=== PATIENT | female | born 1985 | race African-American/Black ===

== ENCOUNTER 2020-09-12 08:05 | Outpatient (CLI) | payer OTHER, SELFPAY ==
--- NOTE | 2020-09-12 14:21 | WPDSIXMINUTE ---
Six Minute Walk Procedure Procedure Performed Pulmonary Stress Test (6 min walk) Six Minute Walk This is a 6 minutes walk test. The test was performed and interpreted in accordance with the 2014 ERS/ATS task force guidelines. Findings: The patient's resting room air oxygen saturation measured by pulse oximetry was 99% and her heart rate was 103 bpm. Patient ambulated for 381 meters and oxygen saturation remained 97 to 99%. Heart rate at the end of the study was 118 bpm. The patient did not qualify for supplemental oxygen at rest or with ambulation. There are no prior studies for comparison.
--- NOTE | 2020-09-12 14:22 | P.PCNPFT_ITS ---
PFT Procedure Performed PFT Procedure Performed Spirometry with Pre/Post Bronchodilator Plethysmography (Lung Vol) Diffusing Cap (DLCO) Flow Vol Loop PFT Interpretation This is a pulmonary function test with pre and post-bronchodilator spirometry, plethysmography, diffusing capacity and measurement of maximal inspiratory and expiratory pressures. The test was performed and results interpreted in accordance with the 2019 and 2005 ATS/ERS Task Force guidelines respectively using the Global Lung Function Initiative-2012 reference equations. Patient demonstrated good effort and cooperation although she had a very difficult time with all testing trials due to her inability to take in a deep breath or exhale fully. Patient stated this breathing pattern started in the past couple months. Patient stated she did feel some relief post albuterol but minimal. Reproducibility criteria were met. The quality of the pre bronchodilator spirometry maneuver was Grade A and post bronchodilator spirometry maneuver was Grade B. Findings: Spirometry: The contour of the pre bronchodilator expiratory flow tracing is blunted with all attempts. The contour of the post bronchodilator expiratory flow tracing is normal. The contour the inspiratory flow tracings are normal. The pre bronchodilator FVC is 2.56 L, 71% predicted. The pre bronchodilator FEV1 is 1.61 L, 54% predicted. The FEV1: FVC ratio 63%. The post bronchodilator FVC is 2.83 L, representing an 11% increase. The post bronchodilator FEV1 is 2.26 L, representing a 40% increase. Plethysmography: The total lung capacity is 5.66 L, 117% predicted. The functional residual capacity is 4.30 L, 153% predicted. The residual volume is 3.10 L, 210% predicted. Diffusing capacity: The absolute diffusion capacity is 18.5, 72% predicted. The diffusing capacity corrected for alveolar volume is 5.78, 122% predicted. Pressures: Maximal inspiratory pressure was 31 cm water, 36% predicted. Maximal expiratory pressure was 30 cm water, 20% predicted. Impression: There is a moderately severe obstructive abnormality with significant improvement after inhaling a single dose of albuterol. The increase in residual volume is consistent with air trapping from an obstructive abnormality. Hyperinflation is present is demonstrated by the increase in functional residual capacity and is consistent with an obstructive abnormality. The absolute diffusing capacity is mildly decreased and normalizes when corrected for alveolar volume. There are not standardized reference values for maximal inspiratory and expiratory pressures in patients with an obstructive abnormality making interpretation of this patient's pressure values difficult. Compared to the Global Lung Function Initiative - 2012 reference values these values are consistent with respiratory muscle weakness. Using data from an article examining 6 different reference ranges for maximal inspiratory pressure this patient has 100% chance of respiratory muscle weakness (Chest 2017;152(1):32- 39). There are no prior studies for comparison
== END 2020-09-12 08:06 | disposition home or self-care (01) ==
PROVIDERS: Visit Provider Internal Medicine Critical Care Medicine
DX: R06.02 Shortness of breath (principal); R94.2 Abnormal results of pulmonary function studies
CPT/HCPCS: 94060; 94200; 94618; 94726; 94729

== ENCOUNTER 2020-09-27 08:35 | Outpatient (CLI) | payer OTHER, SELFPAY ==
--- NOTE | 2020-10-23 14:54 | WPDHOMESLEEP ---
Sleep Study - Home Unattended Date of Study: 09/27/20 Ordering Provider: Shazia Castorena MD Interpreting Provider: Shazia Castorena MD Home Sleep Study Type: Watch PAT Height: 1.7 m Weight: 75.296 kg Body Mass Index: 25.9 Neck Circumference (inches): 12.25 [place]: 20 Reason for Sleep Study Excessive daytime sleepiness over the last several months, nocturia, dry mouth at night Sleep History Kayli Polk is a 35 year old female with hypertension and shortness of breath over the last few months who complains for increased sleepiness in the day. She frequently awakens from sleep feeling short of breath, frequently awakens at night with heartburn, belching or coughing. She occasionally snores and occasionally this is loud enough for others to complain about. She occasionally has trouble sleeping with a cold. She frequently wakes up gasping for breath at night. She occasionally has breathing problems at night observed by others and occasionally sweats excessively at night. She frequently notices her heart pounding or beating irregularly at night. She occasionally falls asleep during the day, rarely involuntarily and never while driving. She does not have loss of muscle tone with strong emotion. She rarely has daytime difficulties due to excessive sleepiness. She occasionally feels paralyzed on waking or falling asleep and occasionally has vivid dreamlike scenes upon awakening or falling asleep. She is rarely afraid to go to sleep. She rarely has nightmares. She occasionally remembers her dreams, occasionally has racing thoughts and rarely feels sad or depressed. She frequently has anxiety. She occasionally has muscular tension and notices parts of her body jerking. She rarely kicks at night. She does not have chronic pains in her legs. She really has any kind of leg pain at night. She does not have morning jaw pain. She rarely grinds her teeth during sleep. She occasionally is bothered by pain during the day, awakened by pain at night, occasionally wakes up feeling stiff in the morning with sore or achy muscles and pain in the neck and spine. She has headaches and palpitations as well as concentration difficulties and insomnia. Normal bedtime 10:30 p.m. sometimes falling asleep easily but other times takes a while to fall asleep. She wakes at most once at night to urinate and she will look at her phone. Sometimes when she wakes at night she is not able to return to sleep. Her normal wake-up time is 7:00 a.m.. She will only take a nap during the day if she is extremely tired. Short naps are not refreshing. She is usually drowsy in the morning for 2 hours or longer. She feels better in the afternoon compared to the morning. Habits: Never smoked tobacco. Caffeine 1 cup of coffee daily. Alcohol 1 glass of wine per week. No recreational drugs. [facility] Past Medical History Medical History (Updated 10/23/20 @ 14:59 by Shazia Castorena MD) Depression Heart murmur HSV-2 (herpes simplex virus 2) infection Hypertension Migraine without aura Nontoxic (diffuse) goiter Shortness of Breath (~04/2020) Uterus didelphys Surgical History Surgical History H/O thyroidectomy History of carpal tunnel surgery of right wrist Social History Social History Smoking status: Never smoker Medications Home Medications Medication Instructions Recorded Confirmed Type Bacillus coagulans 1 billion cell cell PO 07/31/20 History capsule cholecalciferol (vitamin D3) 125 125 mcg PO DAILY 07/31/20 History mcg (5,000 unit) capsule drospirenone 3 mg-ethinyl 1 tablet PO DAILY 07/31/20 History estradiol 0.03 mg tablet valacyclovir 500 mg tablet 1,000 mg PO DAILY tablet 07/31/20 History carvedilol 12.5 mg tablet 25 mg PO Q12H tablet 08/01/20 History furosemide 20 mg tablet 20 mg PO QAM 08/01/20 History fluticasone
[2020-10-23 15:02] VITALS: BMI 25.9
== END 2020-09-30 11:45 | disposition home or self-care (01) ==
PROVIDERS: Visit Provider Internal Medicine Critical Care Medicine
DX: G47.10 Hypersomnia, unspecified (principal)
CPT/HCPCS: 95800

== ENCOUNTER 2021-07-10 08:06 | Outpatient (CLI) | payer OTHER, SELFPAY ==
--- NOTE | 2021-07-15 17:29 | WPDSLEEPSTUD ---
Sleep Study Date of Study: 07/10/21 Ordering Provider: Shazia Castorena MD Interpreting Physician: Shazia Castorena MD Sleep Study Type: Polysomnogram Height: 1.7 m Weight: 77.111 kg Body Mass Index: 26.6 Neck Circumference (inches): 12.5 [place]: 11 Reason for Sleep Study Hypersomnolence Sleep History Kayli Polk is a 36 year old female with hypertension and shortness of breath who had a home sleep test using WatchPat 09/27/2020 that was negative for sleep disordered breathing. She was tested for complaints of snoring, dry mouth, daytime dysfunction and need for naps.? She has hypertension, depression and seasonal allergies. Her symptoms did appear to be higher in supine position.? She frequently awakens from sleep feeling short of breath, frequently awakens at night with heartburn, belching or coughing.? She occasionally snores and occasionally this is loud enough for others to complain about.? She occasionally has trouble sleeping with a cold.? She frequently wakes up gasping for breath at night.? She occasionally has breathing problems at night observed by others and occasionally sweats excessively at night.? She frequently notices her heart pounding or beating irregularly at night.? She occasionally falls asleep during the day, rarely involuntarily and never while driving.? She does not have loss of muscle tone with strong emotion.? She rarely has daytime difficulties due to excessive sleepiness.? She occasionally feels paralyzed on waking or falling asleep and occasionally has vivid dreamlike scenes upon awakening or falling asleep.? She is rarely afraid to go to sleep.? She rarely has nightmares.? She occasionally remembers her dreams, occasionally has racing thoughts and rarely feels sad or depressed.? She frequently has anxiety.? She occasionally has muscular tension and notices parts of her body jerking.? She rarely kicks at night.? She does not have chronic pains in her legs.? She really has any kind of leg pain at night.? She does not have morning jaw pain.? She rarely grinds her teeth during sleep.? She occasionally is bothered by pain during the day, awakened by pain at night, occasionally wakes up feeling stiff in the morning with sore or achy muscles and pain in the neck and spine.? She has headaches and palpitations as well as concentration difficulties and insomnia. Normal bedtime 10:30 p.m. sometimes falling asleep easily but other times takes a while to fall asleep.? She wakes at most once at night to urinate and she will look at her phone.? Sometimes when she wakes at night she is not able to return to sleep.? Her normal wake-up time is 7:00 a.m..? She will only take a nap during the day if she is extremely tired.? Short naps are not refreshing.? She is usually drowsy in the morning for 2 hours or longer.? She feels better in the afternoon compared to the morning. Habits:? Never smoked tobacco.? Caffeine 1 cup of coffee daily.? Alcohol 1 glass of wine per week.? No recreational drugs. [facility] Past Medical History Medical History Depression Heart murmur HSV-2 (herpes simplex virus 2) infection Hypertension Migraine without aura Nontoxic (diffuse) goiter Shortness of Breath (~04/2020) Uterus didelphys Surgical History Surgical History H/O thyroidectomy History of carpal tunnel surgery of right wrist Social History Social History (Updated 07/15/21 @ 17:32 by Shazia Castorena MD) Smoking status: Never smoker Medications Home Medications Medication Instructions Recorded Confirmed Type Bacillus coagulans 1 billion cell cell PO 07/31/20 History capsule cholecalciferol (vitamin D3) 125 125 mcg PO DAILY 07/31/20 History mcg (5,000 unit) capsule drospirenone 3 mg-ethinyl 1 tablet PO DAILY 07/31/20 History estradiol 0.03 mg tablet (Sejal (28)) valacyclovir 500 mg tablet 1,000 mg PO DAILY
[2021-07-15 18:36] VITALS: BMI 26.6
--- NOTE | 2021-07-15 18:37 | WPDSLEEPSTUD ---
Sleep Study Date of Study: 07/11/21 Ordering Provider: Shazia Castorena MD Interpreting Physician: Shazia Castorena MD Sleep Study Type: Multiple Sleep Latency Test Height: 1.7 m Weight: 77.111 kg Body Mass Index: 26.6 Neck Circumference (inches): 12.5 [place]: 11 Reason for Sleep Study Hypersomnolence Sleep History Please see sleep history and PSG results from 07/10/2021. The patient slept for more than 6 hours, and proceeded to the multiple sleep latency test for evaluation of hypersomnolence. [facility] Past Medical History Medical History Depression Heart murmur HSV-2 (herpes simplex virus 2) infection Hypertension Migraine without aura Nontoxic (diffuse) goiter Shortness of Breath (~04/2020) Uterus didelphys Surgical History Surgical History H/O thyroidectomy History of carpal tunnel surgery of right wrist Social History Social History (Updated 07/15/21 @ 17:32 by Shazia Castorena MD) Smoking status: Never smoker Medications Home Medications Medication Instructions Recorded Confirmed Type Bacillus coagulans 1 billion cell cell PO 07/31/20 History capsule cholecalciferol (vitamin D3) 125 125 mcg PO DAILY 07/31/20 History mcg (5,000 unit) capsule drospirenone 3 mg-ethinyl 1 tablet PO DAILY 07/31/20 History estradiol 0.03 mg tablet (Sejal (28)) valacyclovir 500 mg tablet 1,000 mg PO DAILY 07/31/20 History carvedilol 12.5 mg tablet 25 mg PO Q12H 08/01/20 History fluticasone 250 mcg-salmeterol 50 1 inh inhalation BID 1 month #60 ea 09/25/20 Rx mcg/dose blistr powdr for inhalation (Wixela Inhub) albuterol sulfate 2.5 mg (3 mL) inhalation Q6H #180 12/20/20 Rx mL Sleep Procedure The recording montage for the MSLT includes central EEG (C3-A2, C4-A1) and occipital (O1-A2, O2-A1) derivations, left and right eye electrooculograms (EOGs), mental/submental electromyogram (EMG), and electrocardiogram (EKG). Nap 1 commenced at 9:08 a.m. Sleep onset did not occur, and there was no REM. Nap 1 was terminated at 9:28 a.m. The patient said that sleep did not occur. Sleep latency 20 minutes. Nap 2 commenced at 11:08 a.m. Sleep onset 11:15 a.m. No REM occurred. Nap 2 was terminated at 11:31 a.m. The patient said that sleep occurred and she reported dreaming a little. Sleep latency 7 minutes. Nap 3 commenced at 1:08 p.m. Sleep onset 1:15 p.m. No REM occurred. Nap 3 was terminated at 1:31 p.m. The patient said that sleep occurred and she reported dreaming. Sleep latency 7 minutes. Nap 4 commenced at 3:08 p.m. Sleep onset 3:18 p.m. No REM occurred. Nap 4 was terminated at 3:34 p.m. The patient said that sleep occurred and she reported dreaming. Sleep latency 10 minutes. The patient did not have a 5th nap. She had no REM on any of the naps. The mean sleep latency is 11 minutes, normal. The patient slept on 3 of 4 naps. The patient perceived sleep on 3 of 4 naps, and perceived dreaming on all three naps although no REM was present. Sleep Architecture NA Respiratory Analysis Not measured. Arousals Not measured. Periodic Limb Movements Not measured. Oximetry Data Not measured. Snoring Profile Not measured. Cardiac Profile Normal sinus rhythm. EEG Profile NA Assessment and Plan Assessment and Plan (1) Hypersomnolence: Code(s): G47.10 - Hypersomnia, unspecified Status: Acute Assessment and Plan: This mean sleep latency test shows a normal result with a mean sleep latency of 11 minutes, with sleep occurring on 3 of 4 nap opportunities without REM. This result is not consistent with narcolepsy or idiopathic hypersomnolence. Data The data obtained during this sleep study is adequate for interpreta
[2021-07-15 19:28] VITALS: BMI 26.6
== END 2021-07-11 16:19 | disposition home or self-care (01) ==
LOC: ANHCSM 08:10
PROVIDERS: Visit Provider Internal Medicine Critical Care Medicine
DX: G47.19 Other hypersomnia (principal); G47.61 Periodic limb movement disorder; G47.10 Hypersomnia, unspecified
CPT/HCPCS: 95805; 95810

== ENCOUNTER 2021-10-28 14:21 | Outpatient (CLI) | payer OTHER, SELFPAY ==
--- NOTE | 2021-10-29 11:14 | WPDPFTINT ---
PFT Procedure Performed PFT Procedure Performed Spirometry with Pre/Post Bronchodilator Plethysmography (Lung Vol) Diffusing Cap (DLCO) Flow Vol Loop PFT Interpretation Lung volumes were measured with the body plethysmography method. The elevated RV and FRC could be due to air trapping. Spirometry showed diminished expiratory flow rates and normal FEV1 to FVC ratio of 81%. Following administration of a bronchodilator there was significant increase in the FEV1 but the FEV1 to FVC ratio decreased to 62%. The flow volume loop is consistent with suboptimal patient effort. Lung diffusion capacity is mildly reduced at 71% predicted. In comparison to previous study in 08/2020, the post bronchodilator FVC is now lower by approximately 0.6 L as is the FEV1 by also 0.6 L. Lung volumes and lung diffusion capacity are essentially unchanged. Overall this is a nonspecific pattern likely related to patient's suboptimal effort. Impression: Suboptimal patient effort. Nonspecific pattern. Mild reduction in lung diffusion capacity.
== END 2021-10-28 14:22 | disposition home or self-care (01) ==
LOC: ANHPFT 14:22
PROVIDERS: Visit Provider Internal Medicine Critical Care Medicine
DX: J45.909 Unspecified asthma, uncomplicated (principal)
CPT/HCPCS: 94060; 94726; 94729